=== PATIENT | male | born 1985 | race African-American/Black ===

== ENCOUNTER 2016-07-23 16:42 | Emergency (ER) | payer OTHER ==
[2016-07-23 16:48] VITALS: BP 132/66; PULSE 83; TEMP 98.3; BMI 29.4
[2016-07-23] MEDS ORDERED: IBUPROFEN 600 MG TABLET (FP) PO ONE ×2 (17:48→17:49)
--- NOTE | 2016-07-23 17:52 | PDOC ---
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 Patient denies any radiation of pain down the legs or any saddle anesthesia. Patient denies any incontinency. Patient denies any previous lower back issues. Pt. notes the pain currently as a 6 out of 10 and is worse with movement. 01/ Patient reports the pa05/30 19:47 07/24/16 19:49 Timing/Duration: getting worse Severity: moderate (right lower back to rt. buttock ) Past History - Past Medical History Allergies/Adverse Reactions: Allergies Allergy/AdvReac Type Severity Reaction Status Date / Time No Known Allergies Allergy Verified 07/23/16 16:43 Home Medications: Ambulatory Orders Naproxen [Naprosyn -] 500 mg PO BID PRN #14 tablet MDD 2 07/23/16 Anemia: No Asthma: Yes Diabetes: No Suicide Attempt (Hx): No - Surgical History Abdominal Surgery: No Orthopedic Surgery: No - Immunization History Td Vaccination: Yes TDAP Vaccination: Yes Immunization Up to Date: Yes - Psycho/Social/Smoking Cessation Hx Anxiety: No Suicidal Ideation: No Smoking Status: No Smoking History: Never smoked Years of Tobacco Use: 0 Have you smoked in the past 12 months: No Number of Cigarettes Smoked Daily: 0 Cigars Per Day: 0 Information on smoking cessation initiated: No Hx Alcohol Use: No Drug/Substance Use Hx: No Substance Use Type: None Review of Systems - Review of Systems Able to Perform ROS?: Yes Constitutional: No: Symptoms Reported HEENTM: No: Symptoms Reported Respiratory: No: Symptoms reported Cardiac (ROS): No: Symptoms Reported ABD/GI: No: Symptoms Reported : No: Symptoms Reported Musculoskeletal: Yes: Back Pain (right lumbar radiates to rt. buttock today ) Integumentary: No: Symptoms Reported Neurological: No: Symptoms reported *Physical Exam - Vital Signs Last Vital Signs Temp Pulse Resp BP Pulse Ox 98.3 F 83 18 132/66 100 07/23/16 16:44 07/23/16 16:44 07/23/16 16:44 07/23/16 16:44 07/23/16 16:44 - Physical Exam General Appearance: Yes: Appropriately Dressed Respiratory/Chest: positive: Lungs Clear, Normal Breath Sounds. negative: Chest Tender, Respiratory Distress Cardiovascular: positive: Regular Rhythm, Regular Rate, S1, S2 Musculoskeletal: positive: Normal Inspection, Decreased Range of Motion (from waist), Other (right sided lumbar back tenderness, rt. buttock tenderness to palpation). negative: CVA Tenderness, CVA Tenderness (R), CVA Tenderness (L), Vertebral Tenderness Extremity: positive: Normal Capillary Refill, Normal Inspection, Normal Range of Motion Integumentary: positive: Normal Color Neurologic: positive: Alert, Normal Response, Motor Strength 5/5, Respond to painful stimul, Responsive, Other. 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 Patient denies any radiation of pain down the legs or any saddle anesthesia. Patient denies any incontinency. Patient denies any previous lower back issues. Pt. notes the pain currently as a 6 out of 10 and is worse with movement. Right lower back pain with radiculopathy to right buttocks back strain Plan: Does not want anything presently for pain and will discharge on Naprosyn 500 mg twice a day when necessary pain Patient go off duty will follow up with orthopedist prior to return to work Patient will follow-up with occupational health prior to return to work 07/24/16 19:49 *DC/Admit/Observation/Transfer Diagnosis at time of Disposition: Lumbar back pain Qualifiers: Chronicity: acute Back pain laterality: right Sciatica presence: with sciatica Sciatica laterality: sciatica of right side Qualified Code(s): M54.41 - Lumbago with sciatica, right side - Discharge Dispostion Disposition: HOME Condition at time of disposition: Stable - Prescriptions Prescriptions: Naproxen [Naprosyn -] 500 mg PO BID PRN #14 tablet MDD 2 PRN Reason: Pain - Referrals Referrals: Omar Perez MD [Staff Physician] - - Patient Instructions Additional Instructions: Avoid any strenuous activities or exercise Return to emergency room if any numbness of legs or groin or worsening pain Follow up with orthopedist as soon as possible for further evaluation Follow up with occupational health prior to return to work Patient voiced understanding of discharge instructions and all questions were answered - Post Discharge Activity Work/School Note: Back to Work
== END 2016-07-23 18:15 | disposition home or self-care (01) ==
LOC: JERFT 16:42 → JER 16:42 → JERFT 18:15
DX: M54.41 Lumbago with sciatica, right side (principal); X50.0XXA Overexertion from strenuous movement or load, initial encounter; Y35.811A Legal intervention involving manhandling, law enforcement official injured, initial encounter; Y93.89 Activity, other specified; Y92.89 Other specified places as the place of occurrence of the external cause; Y99.0 Civilian activity done for income or pay
CPT/HCPCS: 99281-25

== ENCOUNTER 2017-04-08 04:26 | Emergency (ER) | payer OTHER ==
--- NOTE | 2017-04-08 04:37 | PDOC ---
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 The symptoms began approximately 30 minutes after eating. He states that the itching began on the right palm. He reports mild shortness of breath, but does not feel like his throat is closing. He also reports some heartburn. He notes that he has eaten these protein bars previously and never had a reaction to them before. He took 4 -25mg benadryl tablets prior to arrival to the emergency room with mild relief. He has no known allergies. Denies rash. Denies any recent change in diet. Denies lightheadedness, headache. Denies chest pain, cough. Denies fever, chills, nausea, vomiting. Allergies: NKDA, no known food allergies. The patient is not followed by a PCP. <Arline Garcia - Last Filed: 04/08/17 06:16> <Zay Murphy - Last Filed: 04/08/17 15:43> - General Chief Complaint: Allergic Reaction Stated Complaint: ALLERGIC REACTION-[facility]PD Time Seen by Provider: 04/08/17 04:37 Past History <Arline Garcia - Last Filed: 04/08/17 06:16> - Past Medical History Anemia: No Asthma: Yes Diabetes: No - Surgical History Abdominal Surgery: No Orthopedic Surgery: No - Immunization History Td Vaccination: Yes TDAP Vaccination: Yes Immunization Up to Date: Yes - Suicide/Smoking/Psychosocial Hx Smoking Status: No Smoking History: Never smoked Years of Tobacco Use: 0 Have you smoked in the past 12 months: No Number of Cigarettes Smoked Daily: 0 Cigars Per Day: 0 Information on smoking cessation initiated: No Hx Alcohol Use: No Drug/Substance Use Hx: No Substance Use Type: None <Zay Murphy - Last Filed: 04/08/17 15:43> - Past Medical History Allergies/Adverse Reactions: Allergies Allergy/AdvReac Type Severity Reaction Status Date / Time No Known Allergies Allergy Verified 04/08/17 04:34 Home Medications: Ambulatory Orders Naproxen [Naprosyn -] 500 mg PO BID PRN #14 tablet MDD 2 07/23/16 Epinephrine [Epipen 2-Jose Luis] 0.3 mg IJ ASDIR #1 kit 04/08/17 Famotidine [Pepcid -] 20 mg PO DAILY #7 tablet 04/08/17 Prednisone [Prednisone 50 MG TABLETS] 50 mg PO DAILY #4 tablet 04/08/17 Review of Systems - Review of Systems Able to Perform ROS?: Yes Comments:: 04/08/17 06:16 GENERAL/CONSTITUTIONAL: No fever or chills. No weakness. HEAD, EYES, EARS, NOSE AND THROAT: +bottom lip swelling. +Tongue swelling. No change in vision. No ear pain or discharge. No sore throat. GASTROINTESTINAL: No nausea, vomiting, diarrhea or constipation. GENITOURINARY: No dysuria, frequency, or change in urination. CARDIOVASCULAR: +shortness of breath. No chest pain. RESPIRATORY: No cough, wheezing, or hemoptysis. MUSCULOSKELETAL: No joint or muscle swelling or pain. No neck or back pain. NEUROLOGIC: No headache, vertigo, loss of consciousness, or change in strength/ sensation. ENDOCRINE: No increased thirst. No abnormal weight change. HEMATOLOGIC/LYMPHATIC: No anemia, easy bleeding, or history of blood clots. ALLERGIC/IMMUNOLOGIC: +itchy palms bilaterally. +bottom lip swelling. +Tongue swelling. No hives. <Jessee Garciassica - Last Filed: 04/08/17 06:16> *Physical Exam - Vital Signs Last Vital Signs Temp Pulse Resp BP Pulse Ox 72 14 128/83 98 04/08/17 04:35 04/08/17 04:35 04/08/17 04:35 04/08/17 04:35 - Physical Exam Comments: 04/08/17 06:17 GENERAL: Awake, alert, and fully oriented, in no acute distress HEAD: No signs of trauma EYES: PERRLA, EOMI, sclera anicteric, conjunctiva clear ENT: Auricles normal inspection, hearing grossly normal, nares patent, oropharynx clear without exudates. Moist mucosa. No tongue or OP edema. Mild lower lip swelling. NECK: Normal ROM, supple, no lymphadenopathy, JVD, or masses LUNGS: +mild wheezing on the left. no crackles HEART: Regular rate and rhythm, normal S1 and S2, no murmurs, rubs or gallops ABDOMEN: Soft, nontender, normoactive bowel sounds. No guarding, no rebound. No masses EXTREMITIES: Normal range of motion, no edema. No clubbing or cyanosis. No cords , erythema, or tenderness BACK: No midline spinal tenderness in cervical/thoracic/lumbar region NEUROLOGICAL: Normal speech, cranial nerves intact, negative pronator drift, 5/ 5 strength in all 4 extremities, normal sensation to light touch in all 4 extremities, normal cerebellar exam, normal gait, normal reflexes and tone SKIN: Warm, Dry, normal turgor, no rashes or lesions noted. <Arline Garcia - Last Filed: 04/08/17 06:16> - Vital Signs Last Vital Signs Temp Pulse Resp BP Pulse Ox 72 14 128/83 98 04/08/17 04:35 04/08/17 04:35 04/08/17 04:35 04/08/17 04:35 <Zay Murphy - Last Filed: 04/08/17 15:43> ED Treatment Course - Medications Given in the ED: ED Medications Discontinued Medications Generic Name Dose Route Start Last Admin Trade Name Freq PRN Reason Stop Dose Admin Famotidine/Sodium Chloride 50 mls @ 100 mls/hr 04/08/17 04:44 04/08/17 04:56 Pepcid 20 Mg Premixed Ivpb - IVPB 04/08/17 05:13 100 mls/hr ONCE ONE Administration Methylprednisolone Sodium Succinate 125 mg 04/08/17 04:45 04/08/17 04:56 Solu-Medrol - IVPB 04/08/17 04:46 125 mg ONCE ONE Administration <Arline Garcia - Last Filed: 04/08/17 06:16> Medical Decision Making - Medical Decision Making 04/08/17 06:11 31-year-old male with a history of childhood asthma and no known allergies presents with ALLERGIC reaction after eating a protein bar. Vitals unremarkable here. Exam notable for lip edema and mild wheezing.Plan -steroids -pepcid -observe 4 hours 04/08/17 07:11 Pt signed out to day attending for further observation. Still c/o lip swelling but no new symptoms during ~3 hours here in the ED. <Zay Murphy - Last Filed: 04/08/17 15:43> *DC/Admit/Observation/Transfer - Attestations Scribe Attestion: 04/08/17 06:17 Documentation prepared by TATI Coto, acting as vp medical for Zay Murphy MD. <Arilne Garcia - Last Filed: 04/08/17 06:16> - Attestations Physician Attestion: 04/08/17 06:15 I, Dr. Zay Murphy MD, attest that this document has been prepared under my direction and personally reviewed by me in its entirety. I further attest, that it accurately reflects all work, treatment, procedures and medical decision -making performed by me. <Zay Murphy - Last Filed: 04/08/17 15:43> Diagnosis at time of Disposition: Allergic Qualifiers: Encounter type: initial encounter Qualified Code(s): T78.40XA - Allergy, unspecified, initial encounter - Discharge Dispostion Disposition: HOME Condition at time of disposition: Good - Prescriptions Prescriptions: Epinephrine [Epipen 2-Jose Luis] 0.3 mg IJ ASDIR #1 kit Famotidine [Pepcid -] 20 mg PO DAILY #7 tablet Prednisone [Prednisone 50 MG TABLETS] 50 mg PO DAILY #4 tablet - Patient Instructions Printed Discharge Instructions: Food Allergy, Anaphylaxis, Allergy Testing Additional Instructions: Mr Merari Espinal this happened to you. Carry your epi pen with you everywhere, keep benadryl and pepcid on hand. Get the referral to an vehicle body sander so you can be tested to find out what it is that you are allergic to. Return to us if any problems. Omid- Dr. Jaswant Hannah - Post Discharge Activity Forms/Work/School Notes: Back to Work
[2017-04-08] MEDS ORDERED: FAMOTIDINE 20 MG/50 ML IVPB 50 ML IVPB ONE ×2 (04:44→04:49)
[2017-04-08] MEDS ORDERED: methylPREDNISolone NA SUCC 125 MG/2 ML VIAL IVPB ONE (04:45)
[2017-04-08] MEDS ORDERED: methylPREDNISolone NA SUCC 125 MG/2 ML VIAL ONE (04:49)
[2017-04-08 04:51] VITALS: BP 128/83; PULSE 72; BMI 28.7
--- NOTE | 2017-04-08 08:31 | PDOC ---
*Physical Exam - Vital Signs Last Vital Signs Temp Pulse Resp BP Pulse Ox 72 14 128/83 98 04/08/17 04:35 04/08/17 04:35 04/08/17 04:35 04/08/17 04:35 ED Treatment Course - Medications Given in the ED: ED Medications Discontinued Medications Generic Name Dose Route Start Last Admin Trade Name Laurie PRN Reason Stop Dose Admin Famotidine/Sodium Chloride 50 mls @ 100 mls/hr 04/08/17 04:44 04/08/17 04:56 Pepcid 20 Mg Premixed Ivpb - IVPB 04/08/17 05:13 100 mls/hr ONCE ONE Administration Methylprednisolone Sodium Succinate 125 mg 04/08/17 04:45 04/08/17 04:56 Solu-Medrol - IVPB 04/08/17 04:46 125 mg ONCE ONE Administration Medical Decision Making - Medical Decision Making 04/08/17 08:28 Patient without any obvious swelling, although he subjectively feel some in his lower lip. No difficulty breathing, no wheezing. We spoke about the possiblity of nuts being the source of the allergy. We discussed an epi pen as well as benadryl and pepcid. I encouraged him to seek a referral to an railway engineer for blood or skin testing. *DC/Admit/Observation/Transfer Diagnosis at time of Disposition: Allergic Qualifiers: Encounter type: initial encounter Qualified Code(s): T78.40XA - Allergy, unspecified, initial encounter - Discharge Dispostion Disposition: HOME Condition at time of disposition: Good Admit: No - Prescriptions Prescriptions: Epinephrine [Epipen 2-Jose Luis] 0.3 mg IJ ASDIR #1 kit Famotidine [Pepcid -] 20 mg PO DAILY #7 tablet Prednisone [Prednisone 50 MG TABLETS] 50 mg PO DAILY #4 tablet - Patient Instructions Printed Discharge Instructions: Allergy Testing, Food Allergy, Anaphylaxis Additional Instructions: Mr Merari Espinal this happened to you. Carry your epi pen with you everywhere, keep benadryl and pepcid on hand. Get the referral to an railway engineer so you can be tested to find out what it is that you are allergic to. Return to us if any problems. Omid- Dr. Jaswant Hannah - Post Discharge Activity Forms/Work/School Notes: Back to Work
== END 2017-04-08 08:41 | disposition home or self-care (01) ==
LOC: JER 04:26
PROC: 3E033GC Introduction of Other Therapeutic Substance into Peripheral Vein, Percutaneous Approach (ICD-10-PCS; principal; 2017-04-08)
DX: T78.40XA Allergy, unspecified, initial encounter (principal); X58.XXXA Exposure to other specified factors, initial encounter; Y93.89 Activity, other specified; Y92.9 Unspecified place or not applicable
CPT/HCPCS: 99282-25

== ENCOUNTER 2018-09-28 15:00 | Emergency (ER) | payer OTHER ==
[2018-09-28 15:30] VITALS: BP 104/51; PULSE 76; TEMP 98.2; BMI 29.4
--- NOTE | 2018-09-28 15:30 | PDOC ---
Rapid Medical Evaluation Time Seen by Provider: 09/28/18 15:27 Medical Evaluation: Allergies Allergy/AdvReac Type Severity Reaction Status Date / Time No Known Allergies Allergy Verified 09/28/18 15:27 09/28/18 15:27 I have performed a brief in-person evaluation of this patient. The patient presents with a chief compliant of injury to right thumb today. Jenniffer billings reports injury while arresting a suspect today Pertinent physical exam findings NAD unlabored breathing + pain with flexing and extending of right thumb, no swelling or redness noted I have ordered the following xray of right thumb The patient will proceed to the ED for further evaluation. Discharge Disposition - Diagnosis Thumb injury - Referrals - Patient Instructions - Post Discharge Activity
--- NOTE | 2018-09-28 16:08 | PDOC ---
History of Present Illness - General Chief Complaint: Injury Stated Complaint: RT HAND THUMB INJURY Time Seen by Provider: 09/28/18 15:27 - History of Present Illness Initial Comments: 09/28/18 16:05 33-year-old male presents for evaluation of right thumb pain. 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 He points to the IPJ of the right thumb as the area of his discomfort. He has refused x-ray. Past History - Past Medical History Allergies/Adverse Reactions: Allergies Allergy/AdvReac Type Severity Reaction Status Date / Time No Known Allergies Allergy Verified 09/28/18 15:27 Home Medications: Ambulatory Orders Naproxen [Naprosyn -] 500 mg PO BID PRN #14 tablet MDD 2 07/23/16 Epinephrine [Epipen 2-Jose Luis] 0.3 mg IJ ASDIR #1 kit 04/08/17 Famotidine [Pepcid -] 20 mg PO DAILY #7 tablet 04/08/17 Prednisone [Prednisone 50 MG TABLETS] 50 mg PO DAILY #4 tablet 04/08/17 Anemia: No Asthma: Yes Diabetes: No - Surgical History Abdominal Surgery: No Orthopedic Surgery: No - Immunization History Td Vaccination: Yes TDAP Vaccination: Yes Immunization Up to Date: Yes - Suicide/Smoking/Psychosocial Hx Smoking Status: No Smoking History: Never smoked Years of Tobacco Use: 0 Have you smoked in the past 12 months: No Number of Cigarettes Smoked Daily: 0 Cigars Per Day: 0 Hx Alcohol Use: Yes (social) Drug/Substance Use Hx: No Substance Use Type: None Review of Systems - Review of Systems Musculoskeletal: Yes: Joint Pain *Physical Exam - Vital Signs Last Vital Signs Temp Pulse Resp BP Pulse Ox 98.2 F 76 18 104/51 L 76 L 09/28/18 15:28 09/28/18 15:28 09/28/18 15:28 09/28/18 15:28 09/28/18 15:28 - Physical Exam Comments: 09/28/18 16:05 Right thumb skin color and temperature are normal. There is full range of motion of the IPJ of the right thumb with tenderness about the ulnar aspect. No evidence of instability or gross sensorimotor deficits is neurovascularly intact. Moderate Sedation - Procedure Monitoring Vital Signs: Procedure Monitoring Vital Signs Temperature 98.2 F 09/28/18 15:28 Pulse Rate 76 09/28/18 15:28 Respiratory Rate 18 09/28/18 15:28 Blood Pressure 104/51 L 09/28/18 15:28 O2 Sat by Pulse Oximetry (%) 76 L 09/28/18 15:28 Medical Decision Making - Medical Decision Making 09/28/18 16:06 Unable to rule out fracture from the stomach injury patient refused x-ray. I'll have him follow-up with hand surgery for further evaluation and treatment should he require it. *DC/Admit/Observation/Transfer Diagnosis at time of Disposition: Thumb injury - Discharge Dispostion Disposition: HOME Condition at time of disposition: Stable - Referrals Referrals: Salvatore Polk MD [Primary Care Provider] - Hector Patel MD [Staff Physician] - - Patient Instructions Additional Instructions: Return to the emergency room for worsening symptoms. Tylenol and Motrin as directed for pain. Follow-up with hand surgery in 1-2 days for further evaluation and treatment options. - Post Discharge Activity
== END 2018-09-28 16:09 | disposition home or self-care (01) ==
LOC: JERFT 15:00
DX: M79.644 Pain in right finger(s) (principal); Y35.811A Legal intervention involving manhandling, law enforcement official injured, initial encounter; Y93.89 Activity, other specified; Y92.89 Other specified places as the place of occurrence of the external cause; Y99.0 Civilian activity done for income or pay
CPT/HCPCS: 99281-25

== ENCOUNTER 2018-12-14 09:53 | Emergency (ER) | payer OTHER | END 2018-12-14 11:33 | disposition home or self-care (01) | LOC: JERFT 09:53 ==

== ENCOUNTER 2019-08-10 21:23 | Emergency (ER) | payer BC, OTHER ==
--- NOTE | 2019-08-10 21:30 | PDOC ---
Attending Attestation - Resident Resident Name: RohitDerik miles - ED Attending Attestation I have performed the following: I have examined & evaluated the patient, The case was reviewed & discussed with the resident, I agree w/resident's findings & plan - HPI HPI: 08/10/19 22:11 see resident hpi - Physicial Exam PE: 08/10/19 22:12 agree with resident exam - Medical Decision Making 08/10/19 22:12 34-year-old male complaining of sudden onset of severe right knee pain after hearing a pop while landing playing basketball X-rays show no fracture or obvious dislocation Exam suggests patellar tendon injury Patient is neurovascularly intact distally Patient placed in a knee immobilizer, given crutches Patient has his own orthopedic surgeon, also given the local on-call to follow- up with
--- NOTE | 2019-08-10 21:40 | PDOC ---
History of Present Illness - General Stated Complaint: DISLOCATED KNEE CAP Time Seen by Provider: 08/10/19 21:29 History Source: Patient Exam Limitations: No Limitations - History of Present Illness Initial Comments: 08/10/19 21:33 Patient is a 34M with no significant medical history here today complaining of R knee pain. Patient states that he jumped up to grab a rebound while playing basketball, then landed on his leg and felt a pop in his knee. Patient states he thought his kneecap was dislocated superiorly. Denies fevers, chills, nausea , vomiting. Denies chest pain and shortness of breath. Past History - Past Medical History Allergies/Adverse Reactions: Allergies Allergy/AdvReac Type Severity Reaction Status Date / Time No Known Allergies Allergy Verified 12/14/18 10:09 Home Medications: Ambulatory Orders Ibuprofen 800 mg PO TID #30 tablet 12/14/18 Anemia: No Asthma: Yes COPD: No Diabetes: No - Surgical History Abdominal Surgery: No Orthopedic Surgery: No - Immunization History Td Vaccination: Yes TDAP Vaccination: Yes Immunization Up to Date: Yes - Psycho Social/Smoking Cessation Hx Smoking Status: No Smoking History: Never smoked Years of Tobacco Use: 0 Have you smoked in the past 12 months: No Number of Cigarettes Smoked Daily: 0 Cigars Per Day: 0 Hx Alcohol Use: Yes (social) Drug/Substance Use Hx: No Substance Use Type: None Review of Systems - Review of Systems Able to Perform ROS?: Yes Comments:: 08/10/19 21:41 GENERAL/CONSTITUTIONAL: No fever or chills. No weakness. CARDIOVASCULAR: No chest pain or shortness of breath RESPIRATORY: No cough, wheezing, or hemoptysis. GASTROINTESTINAL: No nausea, vomiting, diarrhea or constipation. GENITOURINARY: No dysuria, frequency, or change in urination. MUSCULOSKELETAL: + R leg pain. No neck or back pain. SKIN: No rash NEUROLOGIC: No headache, vertigo, loss of consciousness, or change in strength/ sensation. *Physical Exam - Physical Exam 08/10/19 21:43 GENERAL: Awake, alert, and fully oriented, in no acute distress R LEG: +R knee effusion inferior to patella, patella located normally, stable to posterior, anterior, and lateral stresses. No pain in hip and ankle. Unable to extend knee. Flexion intact. Sensation intact. Can flex/extend ankle with no issues. HEAD: No signs of trauma, normocephalic, atraumatic EYES: PERRLA, EOMI, sclera anicteric, conjunctiva clear LUNGS: No distress, speaks full sentences, clear to auscultation bilaterally HEART: Regular rate and rhythm, normal S1 and S2, no murmurs, rubs or gallops, peripheral pulses normal and equal bilaterally. ABDOMEN: Soft, nontender, normoactive bowel sounds. No guarding, no rebound. No masses EXTREMITIES: Normal inspection, Normal range of motion, no edema. No clubbing or cyanosis. NEUROLOGICAL: Cranial nerves II through XII grossly intact. Normal speech, no focal sensorimotor deficits SKIN: Warm, Dry, normal turgor, no rashes or lesions noted. ED Treatment Course - RADIOLOGY Radiology Studies Ordered: Category Date Time Status KNEE 3 POS-RIGHT [RAD] Stat Radiology 08/10/19 21:31 Ordered Medical Decision Making - Medical Decision Making 08/10/19 21:45 Patient is 34M here today with R knee pain. Vitals normal and stable. ?Patella dislocation in field, but appropriate placement now. Will do x-ray to rule out fracture. Will likely place in knee immobilizer, give crutches and instruct to follow up with ortho. Concern for patella tendon rupture or ligamentous injury. 08/10/19 22:05 X-ray shows no fracture. Will discharge with knee immobilizer and crutches. Discharge - Discharge Information Problems reviewed: Yes Clinical Impression/Diagnosis: Knee pain, right Qualifiers: Chronicity: acute Qualified Code(s): M25.561 - Pain in right knee Condition: Fair Disposition: HOME - Admission No - Follow up/Referral Referrals: Omar Perez MD [Staff Physician] - - Patient Discharge Instructions Patient Printed Discharge Instructions: DI for Knee Pain Additional Instructions: Please call the orthopedic doctor listed below tomorrow and follow up in the next 3 days. Please return if you have any new, worsening or concerning symptoms, especially increasing pain and fever. - Post Discharge Activity Work/Back to School Note: Back to Work
[2019-08-10 21:41] VITALS: BP 128/31; PULSE 85; TEMP 98.1; BMI 28.7
== END 2019-08-10 22:24 | disposition home or self-care (01) ==
LOC: JER 21:23
PROC: 2W3QXYZ Immobilization of Right Lower Leg using Other Device (ICD-10-PCS; principal; 2019-08-10)
DX: S86.29 Other injury of muscle(s) and tendon(s) of anterior muscle group at lower leg level (principal); M25.561 Pain in right knee; X50.1XXA Overexertion from prolonged static or awkward postures, initial encounter; Y93.67 Activity, basketball; Y92.310 Basketball court as the place of occurrence of the external cause; Y99.8 Other external cause status
CPT/HCPCS: 73562-TC-RT-FY; 99281-25

== ENCOUNTER 2019-08-12 07:57 | Day surgery (SDC) | payer BC ==
[2019-08-11 16:45] VITALS: BMI 30.1
[2019-08-12] MEDS ORDERED: BUPIVACAINE HCL/PF 0.5% (5 MG/ML) 30 ML VIAL IJ ONE (08:36)
[2019-08-12] MEDS ORDERED: DEXAMETHASONE SOD PHOSPHATE/PF 10 MG/ML SDV ONE (08:36)
[2019-08-12] MEDS ORDERED: MIDAZOLAM HCL 2 MG/2 ML SINGLE DOSE VIAL ONE ×2 (08:36→08:45)
--- NOTE | 2019-08-12 08:44 | HP ---
Satellite [facility] - Chief Complaint Chief Complaint: right knee pain - Past Medical History Allergies/Adverse Reactions: Allergies Allergy/AdvReac Type Severity Reaction Status Date / Time No Known Allergies Allergy Verified 08/11/19 16:39 - Current Medications Current Medications: Home Medications Medication Instructions Recorded Dextroamphetamine/Amphetamine 10 mg PO DAILY 08/11/19 [Adderall 10 mg Tablet] Naproxen 500 mg PO Q8H 08/11/19 Albuterol Sulfate Inhaler - 1 - 2 inh PO QID PRN 08/12/19 [Ventolin HFA Inhaler -] Hydrocodone/Acetaminophen 1 each PO Q6H #30 tablet MDD 4 08/12/19 [Hydrocodone-Acetamin 5-325 mg] Satellite Physical Exam - Physical Examination Vital Signs: Vital Signs Period Temp Pulse Resp BP Sys/Sexton Pulse Ox Last 24 Hr 98 F 80 18 118/66 99 General Appearance: Well Nourished, Well Developed, Alert & Oriented x3 ENT: Clear Lung: Normal air movement Extremities: Other (right knee- + swelling, + palpable defect over quad insertion, + ttp, decr rom, unable to slr, nvi) Neurological: Intact, Alert, Oriented Satellite Impression/Plan - Impression/Plan Impression: right quad tendon rupture Operative Procedure: right quad tendon repair Date to be Performed: 08/12/19
[2019-08-12] MEDS ORDERED: ePHEDrine SULFATE 50 MG/1 ML AMPULE ONE (08:45)
[2019-08-12] MEDS ORDERED: PROPOFOL 20 ML ONE (08:45)
[2019-08-12] MEDS ORDERED: SUCCINYLCHOLINE CHLORIDE 200 MG/10 ML SYRINGE ONE (08:45)
[2019-08-12] MEDS ORDERED: DEXAMETHASONE SOD PHOSPHATE 4 MG/1 ML VIAL ONE (08:46)
[2019-08-12] MEDS ORDERED: KETOROLAC TROMETHAMINE 30 MG/1 ML VIAL ONE (08:46)
[2019-08-12] MEDS ORDERED: ceFAZolin SODIUM 1 GM VIAL ONE (08:46)
[2019-08-12] MEDS ORDERED: ONDANSETRON 4 MG/2 ML VIAL ONE (08:46)
[2019-08-12] MEDS ORDERED: SODIUM CHLORIDE 0.9% P/F 10 ML VIAL IJ ONE (09:05)
[2019-08-12] MEDS ORDERED: oxyCODONE HCL 5 MG TABLET PO PRN (10:20)
[2019-08-12] MEDS ORDERED: ONDANSETRON 4 MG/2 ML VIAL IVPUSH PRN (10:20)
[2019-08-12] MEDS ORDERED: LACTATED RINGERS SOLUTION 1,000 ML IV SCH (10:30)
--- NOTE | 2019-08-12 10:43 | OP ---
Operative Note - Note: Operative Date: 08/12/19 Pre-Operative Diagnosis: right knee patella tendon tear Operation: right knee patella tendon repair, medial and lateral retinacular repair Implants: fiber wire x 2 Surgeon: Bert Niño Box Maker: Nura Tyson Anesthesiologist/[employer] MENDER: Otoniel Hoff Anesthesia: General, Local Estimated Blood Loss (mls): 0 Drains, Volume Out (mls): 0 Blood Volume Replaced (mls): 0 Fluid Volume Replaced (mls): 700 Operative Report Dictated: Yes
--- NOTE | 2019-08-12 10:44 | OP ---
Operative Note - Note: Operative Date: 08/12/19 (vern) Pre-Operative Diagnosis: right quad tendon tear Operation: right patella tendon repair Post-Operative Diagnosis: Other (right patella tendon tear) Surgeon: Bert Niño Shift Supervisor Rn: Nura Tyson Anesthesiologist/[facility] ATTENDANT: Otoniel Hoff Anesthesia: General, Local Estimated Blood Loss (mls): 25 (tourniquet)
[2019-08-12] MEDS ORDERED: HYDROmorphone HCL 0.5 MG/0.5 ML SYRINGE ONE ×2 (10:50→11:05)
[2019-08-12] MEDS ORDERED: oxyCODONE HCL 10 MG SUSTAINED ACTING TABLET ONE (11:06)
[2019-08-12] MEDS ORDERED: oxyCODONE HCL 5 MG TABLET ONE (11:09)
[2019-08-12 12:23] VITALS: TEMP 98.4
--- NOTE | 2019-08-12 13:09 | OP ---
DATE OF OPERATION: 08/12/2019 PREOPERATIVE DIAGNOSIS: Right knee patellar tendon rupture. POSTOPERATIVE DIAGNOSIS: Patellar tendon rupture and medial and lateral retinacular rupture. SURGEON: Sadia Villalobos MD MARZIPAN MOLDER: RESHMA Muhammad ANESTHESIOLOGIST: KENNETH Montiel, with BLACK Nguyen ANESTHESIA: Right regional block with LMA anesthesia. PROCEDURE: Open right knee patellar tendon repair, medial and lateral retinacular repair. BLOOD LOSS: Minimal. BLOOD GIVEN: None. FLUID REPLACEMENT: 700 mL Plasma-Lyte. DRAINS: None. COMPLICATIONS: None. SPECIMEN: None. This patient is a 34-year-old male with a preoperative diagnosis of an acute traumatic right knee patellar tendon rupture from playing basketball 2 nights ago. After understanding the potential risks, complications, alternatives, and benefits of surgery versus nonsurgical treatment, the patient elected to undergo this procedure. The patient was brought to the operating room. Peripheral IV placed. IV sedation given. Two grams of IV Ancef were given. A right regional block was performed. LMA anesthesia was induced. He was placed into the supine position. The right lower extremity was prepped and draped in sterile fashion. Tourniquet had been applied to the right upper thigh. A longitudinal incision was made with a number-15 scalpel blade. Subcutaneous hemostasis was achieved with the Bovie cautery. There were definitely some small bleeders. These were all cauterized with the Bovie cautery. Once we had good hemostasis, then, we elevated the right lower extremity, exsanguinated it with an Esmarch bandage, and the tourniquet inflated to 275 mmHg. Next, I freed the medial and lateral capsule and retinaculum with medial and lateral flaps using my finger for blunt dissection and the Bovie for cauterization. Weitlaner retractors were placed into the wound. Patient had extensive damage to the medial and lateral retinaculum as well as a complete rupture of the patellar tendon. The quadriceps tendon was explored, felt, directly visualized. It was seen to be completely intact with no injury to it at all. Area was copiously irrigated and washed out including a large hemarthrosis from the joint itself. Next, I cleaned up the ends of the patellar tendon, which were quite frayed. I used a rongeur to take fat and inflammatory tissue off the distal pole of the patella and made a small trough. Overall, I was able to pull the patellar tendon up. There was good length, and it would come together quite nicely. I then put a bump under the ankle to take pressure off the repair and put the knee in full extension. Next, I used number 1 Vicryl suture and did an extensive medial and lateral retinacular repair. This re-opposed the patellar tendon and patella quite nicely so there would be no tension on the repair. Once this was done, I used 2 up-and-down locking FiberWire sutures for a total of 4 tails. I then used a Beath pin under power and drilled up 3 drill holes, first medial, then central, then lateral; passing 1 FiberWire tail through the medial and lateral tunnel and 2 through the central tunnel. I then was able to pull up the patellar tendon quite well. It re-opposed the inferior pole of the patella quite nicely. There was not undue tension. I then tied 2 tails to themselves on the superior pole of the patella, both medially and laterally. I then supplemented this repair with additional number 1 Vicryl sutures in the main aspect of the patella tendon to the periosteum of the patella as well as a rough flap of patellar tendon which was still attached to the inferior lateral aspect of the patella. This was brought over the top of the repair and held in place with number 1 Vicryl sutures. Overall, it came together quite well. I was able to bend the knee at least 20 degrees without significant tension. The area was irrigated and washed out. Closure was done with 2-0 Vicryl in the deep dermal layer. Final skin reapproximation was done with a running subcuticular 3-0 V-Loc 90 suture. It was then held in place with SwiftSet glue. It was then washed and dried, covered with sterile 4 x 4 gauze, Webril, an Kd bandage. The knee was placed into a knee immobilizer with the knee in full extension. Tourniquet was taken down after a total tourniquet time of 40 minutes. There were no complications during the case. The patient tolerated the procedure quite well and was brought to the ambulatory recovery room in stable condition. SADIA VILLALOBOS M.D. [id number]
[2019-08-12] MEDS ORDERED: FAMOTIDINE 20 MG/50 ML IVPB 20 MG/50 ML MG IVPB ONE ×2 (15:29→15:37)
[2019-08-12 18:08] VITALS: BP 101/58; PULSE 67
== END 2019-08-12 17:45 | disposition home or self-care (01) ==
LOC: FASU 07:57
PROVIDERS: ATTEND Orthopaedic Surgery
PROC: 0LQQ0ZZ Repair Right Knee Tendon, Open Approach (ICD-10-PCS; principal; 2019-08-12 09:00)
DX: S76.111A Strain of right quadriceps muscle, fascia and tendon, initial encounter (principal); S86.811A Strain of other muscle(s) and tendon(s) at lower leg level, right leg, initial encounter; X58.XXXA Exposure to other specified factors, initial encounter; Y93.67 Activity, basketball; Y92.310 Basketball court as the place of occurrence of the external cause
CPT/HCPCS: 94760

== ENCOUNTER 2020-08-05 19:35 | Emergency (ER) | payer OTHER ==
[2020-08-05 20:14] VITALS: BP 121/67; PULSE 65; TEMP 98.2; BMI 29.4
== END 2020-08-05 20:32 | disposition home or self-care (01) ==
LOC: FER 19:35
DX: U07.1 COVID-19 (principal); J02.0 Streptococcal pharyngitis
CPT/HCPCS: 71045-TC-FY; 99284-25; C9803; U0003

== ENCOUNTER 2021-05-26 15:57 | Emergency (ER) | payer BC, OTHER ==
[2021-05-26 16:18] VITALS: BP 136/79; PULSE 86; TEMP 98.2; BMI 30.8
== END 2021-05-26 17:19 | disposition home or self-care (01) ==
LOC: FER 15:57
PROC: 2W3MX1Z Immobilization of Left Lower Extremity using Splint (ICD-10-PCS; principal; 2021-05-26)
DX: S83.011A Lateral subluxation of right patella, initial encounter (principal); W10.9XXA Fall (on) (from) unspecified stairs and steps, initial encounter
CPT/HCPCS: 73590-TC-RT-FY; 99283-25

== ENCOUNTER 2021-06-06 06:16 | Day surgery (SDC) | payer OTHER ==
[2021-06-05 12:37] VITALS: BMI 30.1
[2021-06-06] MEDS ORDERED: ceFAZolin SODIUM 1 GM VIAL ONE (07:18)
[2021-06-06] MEDS ORDERED: LIDOCAINE HCL/PF 2% SDV 5ML VIAL ONE (07:18)
[2021-06-06] MEDS ORDERED: PROPOFOL 20 ML ONE ×2 (07:18)
[2021-06-06] MEDS ORDERED: SUCCINYLCHOLINE CHLORIDE 200 MG/10 ML SYRINGE ONE (07:19)
[2021-06-06] MEDS ORDERED: MIDAZOLAM HCL 2 MG/2 ML SINGLE DOSE VIAL ONE ×2 (07:19→07:25)
[2021-06-06] MEDS ORDERED: ROPIVACAINE HCL/PF 100 MG/20 ML VIAL ONE (07:26)
[2021-06-06] MEDS ORDERED: KETAMINE HCL 200 MG/20 ML VIAL ONE (07:48)
[2021-06-06] MEDS ORDERED: LIDOCAINE HCL 2% (20ML MULTI-DOSE VIAL) ONE (08:02)
[2021-06-06] MEDS ORDERED: ONDANSETRON 4 MG/2 ML VIAL IVPUSH PRN (09:07)
[2021-06-06] MEDS ORDERED: oxyCODONE HCL 5 MG TABLET PO PRN ×2 (09:07)
[2021-06-06] MEDS ORDERED: LACTATED RINGERS SOLUTION 1,000 ML IV SCH (09:15)
[2021-06-06] MEDS ORDERED: ACETAMINOPHEN INJECTION 100 ML IVPB ONE (09:22)
[2021-06-06] MEDS ORDERED: ACETAMINOPHEN 1000 MG/100 ML VIAL IVPB ONE (09:25)
[2021-06-06 11:20] VITALS: TEMP 97.8
[2021-06-06 11:34] VITALS: BP 109/68; PULSE 64
== END 2021-06-06 11:25 | disposition home or self-care (01) ==
LOC: FASU 06:16
PROVIDERS: ATTEND Orthopaedic Surgery Sports Medicine
PROC: 0LQN0ZZ Repair Right Lower Leg Tendon, Open Approach (ICD-10-PCS; principal; 2021-06-06 08:17)
DX: S86.011A Strain of right Achilles tendon, initial encounter (principal); X58.XXXA Exposure to other specified factors, initial encounter; Y93.9 Activity, unspecified; Y92.9 Unspecified place or not applicable
CPT/HCPCS: 94760; J0131

== ENCOUNTER 2022-12-17 20:09 | Emergency (ER) | payer OTHER ==
[2022-12-17 20:23] VITALS: BP 123/72; PULSE 78; RESP 18; TEMP 98.5; BMI 30.1
== END 2022-12-17 21:24 | disposition home or self-care (01) ==
LOC: FER 20:09
DX: R07.89 Other chest pain (principal)
CPT/HCPCS: 36415; 84484; 93005; 99284-25

== ENCOUNTER 2023-01-13 22:08 | Emergency (ER) | payer OTHER ==
[2023-01-13 22:15] VITALS: BP 105/69; PULSE 72; RESP 16; TEMP 98.5; BMI 30.8
[2023-01-13] MEDS ORDERED: CYCLOBENZAPRINE HCL 10 MG TABLET (FP) PO ONE (22:45)
[2023-01-13] MEDS ORDERED: CYCLOBENZAPRINE HCL 5 MG TABLET ONE (22:47)
== END 2023-01-13 23:11 | disposition home or self-care (01) ==
LOC: FER 22:08
DX: M54.41 Lumbago with sciatica, right side (principal); V49.40XA Driver injured in collision with unspecified motor vehicles in traffic accident, initial encounter; Y93.I9 Activity, other involving external motion; Y92.410 Unspecified street and highway as the place of occurrence of the external cause; Y99.0 Civilian activity done for income or pay
CPT/HCPCS: 99283-25